=== PATIENT | female | born 1980 ===

== ENCOUNTER 2021-10-21 14:37 | Inpatient (IN) | payer BC ==
[2021-10-21] MEDS ORDERED: Terbutaline 1 MG/ML SDV SUBCUT PRN (17:08)
[2021-10-21] MEDS ORDERED: Lidocaine 1% 50 ML MDV INJECT PRN (17:09)
[2021-10-21] MEDS ORDERED: Carboprost Tromethamine 250 MCG/1 ML Amp IM PRN (17:09)
[2021-10-21] MEDS ORDERED: Tranexamic Acid 1,000 MG in Sodium Chloride 0.9% 100 ML IV PRN (17:09)
[2021-10-21] MEDS ORDERED: Sodium Chloride 0.9% 10 ML Syringe FLUSH PRN (17:09)
[2021-10-21] MEDS ORDERED: Butorphanol 1 MG/ML SDV IVPUSH PRN (17:09)
[2021-10-21] MEDS ORDERED: Ondansetron 4 MG/2 ML SDV IVPUSH PRN (17:09)
[2021-10-21] MEDS ORDERED: Methylergonovine 0.2 MG/1 ML Amp IM PRN (17:09)
[2021-10-21] MEDS ORDERED: Misoprostol 200 MCG Tab PO PRN (17:09)
[2021-10-21] MEDS ORDERED: Water For Irrigation,Sterile 1,000 ML Container IRR PRN (17:09)
[2021-10-21] MEDS ORDERED: Sodium Chloride 0.9% 20 ML SDV IV PRN (17:09)
[2021-10-21] MEDS ORDERED: Sodium Chloride 0.9% 2.5 ML Syringe FLUSH PRN (17:09)
[2021-10-21] MEDS ORDERED: Lactated Ringers 1,000 ML IV SCH (17:15)
[2021-10-21] MEDS ORDERED: Oxytocin/0.9 % Sodium Chloride 30 UNIT/500 ML BAG IV SCH ×2 (17:15)
[2021-10-21] MEDS: Misoprostol 25 MCG (1/4 of 100 MCG) Tab VAG PRN ×2 (18:04→21:58)
[2021-10-22] MEDS: Misoprostol 25 MCG (1/4 of 100 MCG) Tab VAG PRN (02:03)
[2021-10-22] MEDS ORDERED: Ropivacaine HCl/PF 100 ML ONE (11:21)
[2021-10-22] MEDS ORDERED: ePHEDrine 50 MG/ML SDV IVPUSH PRN (11:46)
[2021-10-22] MEDS ORDERED: Ropivacaine HCl/PF 200 MG in Premix Bag 1 BAG EPIDUR SCH (12:00)
[2021-10-22] MEDS ORDERED: Docusate Sodium 100 MG Cap PO PRN (14:54)
[2021-10-22] MEDS ORDERED: Benzocaine/Menthol 20%-0.5% Spray 78 GM Cannister TOP PRN (14:54)
[2021-10-22] MEDS ORDERED: Lanolin 100% Cream 7 GM Tube TOP PRN (14:54)
[2021-10-22] MEDS ORDERED: Witch Hazel Medicated Pads 40/Jar TOP PRN (14:54)
[2021-10-22] MEDS ORDERED: Tranexamic Acid 1,000 MG in Sodium Chloride 0.9% 100 ML IV PRN (14:54)
[2021-10-22] MEDS ORDERED: Ibuprofen 400 MG Tab PO PRN (14:54)
[2021-10-22] MEDS ORDERED: Bisacodyl 10 MG Supp RECTAL PRN (14:54)
[2021-10-22] MEDS ORDERED: Acetaminophen 500 MG Tab PO PRN (14:54)
[2021-10-22] MEDS: Ibuprofen 800 MG Tab PO PRN (15:34)
[2021-10-22] MEDS ORDERED: Labetalol 100 MG Tab PO SCH (16:30)
[2021-10-22] MEDS ORDERED: Labetalol 100 MG Tab ONE (16:47)
[2021-10-22] MEDS: Labetalol 100 MG Tab PO SCH (21:30)
[2021-10-23] MEDS: Acetaminophen 500 MG Tab PO PRN ×2 (04:01→17:48)
[2021-10-23] MEDS: Ibuprofen 800 MG Tab PO PRN ×2 (04:02→13:29)
[2021-10-23] MEDS ORDERED: Prenatal Multivitamin with Calcium/Folic Acid/Iron Tab PO SCH (09:00)
[2021-10-23] MEDS: Labetalol 100 MG Tab PO SCH (09:09)
== END 2021-10-23 18:00 | disposition home or self-care (01) | DRG 560 ==
LOC: MW.OB 14:37 → OBSVTOIN 10-22 14:37 → MW.OB 10-22 21:29
PROVIDERS: ADMIT Obstetrics & Gynecology; ATTEND Obstetrics & Gynecology
PROC: 10D07Z6 Extraction of Products of Conception, Vacuum, Via Natural or Artificial Opening (ICD-10-PCS; principal; 2021-10-22)
PROC: 3E0P7VZ Introduction of Hormone into Female Reproductive, Via Natural or Artificial Opening (ICD-10-PCS; 2021-10-22)
PROC: 3E033VJ Introduction of Other Hormone into Peripheral Vein, Percutaneous Approach (ICD-10-PCS; 2021-10-22)
PROC: 10907ZC Drainage of Amniotic Fluid, Therapeutic from Products of Conception, Via Natural or Artificial Opening (ICD-10-PCS; 2021-10-22)
PROC: 3E0R3BZ Introduction of Anesthetic Agent into Spinal Canal, Percutaneous Approach (ICD-10-PCS; 2021-10-22)
PROC: 00HU33Z Insertion of Infusion Device into Spinal Canal, Percutaneous Approach (ICD-10-PCS; 2021-10-22)
PROC: 0HQ9XZZ Repair Perineum Skin, External Approach (ICD-10-PCS; 2021-10-22)
DX: O10.92 Unspecified pre-existing hypertension complicating childbirth (principal); Z3A.39 39 weeks gestation of pregnancy; Z37.0 Single live birth; O70.0 First degree perineal laceration during delivery; Z20.822 Contact with and (suspected) exposure to COVID-19
CPT/HCPCS: 36415; 59025; 59409; 82803; 85014; 85018; 85027; 86592; 86850; 86900; 86901; A9270-GY; J0595; J2590; J2795; J7120; U0002